=== PATIENT | female | born 1995 | race Caucasian/White ===

== ENCOUNTER 2017-03-20 21:19 | Emergency (ER) | payer OTHER ==
[~2017-03-20] VITALS: Ht 162.6 cm; Wt 82.0 kg
[~2017-03-20 21:19] MED LIST: ADDE15TA PO; ADDE30TA PO; NAPR500T PO
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
[2017-03-20 22:07] VITALS: BP 138/65; PULSE 78; RESP 16; TEMP 98.4; O2SAT 97
[2017-03-20 22:42] LABS: BLOOD, URINE NEG (NEG); COMMENT (UR) CULT NOT INDICATED; CULTURE IF INDICATED CULT NOT INDICATED; GLUCOSE,URINE NEG (NEG); KETONE, URINE TRACE mg/dL (NEG); MUCUS URINE FEW /lpf (OCC); NITRITE,URINE NEG (NEG); SQUAMOUS EPITHELIAL CELL URINE 2 /hpf (0-5); URINE COLOR YELLOW (YELLW/STRAW)
[2017-03-20 22:48] LABS: AUTOMATED NEUTROPHIL # 13.4 TH/MM3 (1.8-7.7); BASOPHIL % 0.2 % (0.0-2.0); EOSINOPHIL % 0.2 % (0.0-4.0); HEMATOCRIT 47.8 % (35.0-46.0); HEMO FLAGS DIFF FINAL; LYMPH % 14.8 % (9.0-44.0); LYMPHOCYTE # 2.5 TH/MM3 (1.0-4.8); MEAN CELL VOLUME 82.8 FL (80.0-100.0); MEAN CORPUSCULAR HEMOGLOBIN 27.7 PG (27.0-34.0); MEAN CORPUSCULAR HGB CONC 33.5 % (32.0-36.0); MONO % 5.8 % (0.0-8.0); PLATELET COUNT 284 TH/MM3 (150-450); RED BLOOD COUNT 5.77 MIL/MM3 (4.00-5.30); RED CELL DISTRIBUTION WIDTH 13.4 % (11.6-17.2)
[2017-03-20 23:04] LABS: ANION GAP 11 MEQ/L (5-15); AST (GOT) 21 U/L (16-38); BICARBONATE 23.7 MEQ/L (21.0-32.0); BLOOD UREA NITROGEN 12 MG/DL (7-18); CHLORIDE 107 MEQ/L (98-107); GLOMERULAR FILTRATION RATE 94 ML/MIN (>89); POTASSIUM 3.4 MEQ/L (3.5-5.1); SODIUM (NA) 142 MEQ/L (136-145)
[2017-03-20 23:05] LABS: ALT (GPT) 38 U/L (9-42)
[2017-03-20 23:15] LABS: ALKALINE PHOSPHATASE 117 U/L (45-117); TOTAL BILIRUBIN ADULT 0.4 MG/DL (0.2-1.0)
[2017-03-20 23:18] LABS: ACETAMINOPHEN LESS THAN 2.0 MCG/ML (10.0-30.0)
[2017-03-20] MEDS ORDERED: SODIUM CHLOR 0.9% 1000 ML INJ 1,000 ML IV ONE (23:45)
--- NOTE | 2017-03-21 00:20 | RADRPT ---
EXAM DATE/TIME: 03/20/2017 23:38 [place] COMPARISON: No previous studies available for comparison. INDICATIONS : Sudden onset of chest pain tonight. MEDICAL HISTORY : None. SURGICAL HISTORY : None. ENCOUNTER: Initial ACUITY: 1 day PAIN SCORE: 6/10 LOCATION: Bilateral chest FINDINGS: The lungs are clear without infiltrate, nodule, or mass. There is no appreciable pleural effusion fo r technique. Heart and mediastinum are unremarkable. CONCLUSION: No acute cardiopulmonary disease. Mauricio Michel MD on March 21, 2017 at 0:18 Board Certified Radiologist. This report was verified electronically.
[2017-03-21] MEDS ORDERED: DIPHTH/TETANUS/ACEL PERTUSSIS (BOOSTER) 0.5 ML VIAL/PFS IM ONE (00:45)
[2017-03-21 01:12] LABS: AMPHETAMINE, URINE NEG (NEG); BARBITURATES, URINE NEG (NEG); COCAINE, URINE NEG (NEG)
[2017-03-21 01:58] VITALS: BP 136/72; PULSE 103; RESP 18
[2017-03-21] MEDS ORDERED: NAPROXEN 500 MG TAB PO ONE (03:45)
[2017-03-21 05:59] VITALS: BP 115/64; PULSE 76; RESP 20
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
== END 2017-03-21 14:51 | disposition home or self-care (01) ==
LOC: NEPE 21:19 → NEPJ 03-21 14:51
DX: S70.311A Abrasion, right thigh, initial encounter (principal); F41.9 Anxiety disorder, unspecified; F43.25 Adjustment disorder with mixed disturbance of emotions and conduct; D72.829 Elevated white blood cell count, unspecified; F17.200 Nicotine dependence, unspecified, uncomplicated; X78.9XXA Intentional self-harm by unspecified sharp object, initial encounter; Z23 Encounter for immunization; Z86.59 Personal history of other mental and behavioral disorders; Z87.39 Personal history of other diseases of the musculoskeletal system and connective tissue; Z86.69 Personal history of other diseases of the nervous system and sense organs
CPT/HCPCS: 71010; 80053; 80307; 81001; 84443; 84703; 85025; 90471; 90715

== ENCOUNTER 2017-06-25 13:17 | Emergency (ER) | payer OTHER ==
[~2017-06-25] VITALS: Ht 162.6 cm; Wt 115.0 kg
[~2017-06-25 13:17] MED LIST changes: +DICL1GEL7 TOPICAL
[2017-06-25 13:22] VITALS: BP 110/54; PULSE 112; RESP 20; TEMP 98; O2SAT 98
[2017-06-25 13:23] VITALS: BP 134/80; PULSE 91; RESP 20; TEMP 99.2; O2SAT 99
[2017-06-25 14:30] VITALS: BP 137/66; PULSE 85; RESP 15; O2SAT 100
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
[2017-06-25 17:42] VITALS: BP 137/86; PULSE 86; RESP 18; O2SAT 100
[2017-06-25] MEDS ORDERED: VIST50CA PO (17:51)
== END 2017-06-25 18:22 | disposition home or self-care (01) ==
LOC: NEPC 13:17
DX: F41.9 Anxiety disorder, unspecified (principal); F32.9 Major depressive disorder, single episode, unspecified; F90.9 Attention-deficit hyperactivity disorder, unspecified type; F17.210 Nicotine dependence, cigarettes, uncomplicated
CPT/HCPCS: 99283